=== PATIENT | male | born 1960 | race Caucasian/White ===

== ENCOUNTER 2019-07-29 12:46 | Day surgery (SDC) | payer BC ==
[~2019-07-29] VITALS: Ht 170.2 cm; Wt 79.5 kg
[~2019-07-29 12:46] MED LIST: GEMF600 PO; LEVO-T125 MC1 PO
--- NOTE | 2019-07-29 15:14 | NUR ---
07/29/19 1514 Heidi Guevara PT AND UPDATED ON DELAY ON IN HIS START TIME DUE TO PREVIOUS CASE RUNNING LONGER THAN EXPECTED. BED IN LOW, LOCKED POSITION, CALL LIGHT IN REACH.
== END 2019-07-29 16:58 | disposition home or self-care (01) ==
LOC: ORSCSDS 12:46
PROVIDERS: Student in an Organized Health Care Education/Training Program
PROC: 0DBH8ZX Excision of Cecum, Via Natural or Artificial Opening Endoscopic, Diagnostic (ICD-10-PCS; principal; 2019-07-29 14:15)
PROC: 0DBN8ZX Excision of Sigmoid Colon, Via Natural or Artificial Opening Endoscopic, Diagnostic (ICD-10-PCS; principal; 2019-07-29 14:15)
DX: Z12.11 Encounter for screening for malignant neoplasm of colon (principal); D12.0 Benign neoplasm of cecum; K63.5 Polyp of colon; K64.8 Other hemorrhoids; E03.9 Hypothyroidism, unspecified; Z79.899 Other long term (current) drug therapy
CPT/HCPCS: 88305; J2704; J7120

== ENCOUNTER 2020-11-09 08:19 | Day surgery (SDC) | payer BC ==
[~2020-11-09] VITALS: Ht 170.2 cm; Wt 78.9 kg
--- NOTE | 2020-11-09 10:54 | NUR ---
11/09/20 1054 ALINE PEARCE simethicone 4cc used during procedure
== END 2020-11-09 10:50 | disposition home or self-care (01) ==
LOC: ORSCSDS 08:19
PROVIDERS: Student in an Organized Health Care Education/Training Program
PROC: 0DBK8ZX Excision of Ascending Colon, Via Natural or Artificial Opening Endoscopic, Diagnostic (ICD-10-PCS; principal; 2020-11-09 09:45)
PROC: 0DBN8ZX Excision of Sigmoid Colon, Via Natural or Artificial Opening Endoscopic, Diagnostic (ICD-10-PCS; principal; 2020-11-09 09:45)
DX: Z12.11 Encounter for screening for malignant neoplasm of colon (principal); Z86.010 Personal history of colon polyps; D12.5 Benign neoplasm of sigmoid colon; D12.3 Benign neoplasm of transverse colon; K57.30 Diverticulosis of large intestine without perforation or abscess without bleeding; K64.8 Other hemorrhoids; E03.9 Hypothyroidism, unspecified; Z79.899 Other long term (current) drug therapy
CPT/HCPCS: 88305; J2704; J7120